=== PATIENT | female | born 1980 | race African-American/Black ===

== ENCOUNTER 2021-07-14 09:30 | Emergency (ER) | payer OTHER ==
[~2021-07-14] VITALS: Ht 157.5 cm; Wt 63.5 kg
--- NOTE | ~2021-07-14 | EMS ---
[facility] [address] [place] [address] EMS Patient Care Report Name: PRUDENCE CALLES Room #: DEP NEELAM Olvera#: [id number] Admission: 07/14/21 Attend Phys: Discharge: 07/14/21 Date of : 82 Report #: [id number] THIS REPORT FOR: //name// Report Transmitted: 07/15/2021 10:20 EMS Care Summary [place], [place]/[facility] Incident [id number] @ 07/14/2021 08:55 Incident Location [address] [address] Patient PRUDENCE CALLES Female, 40 Years 1980 Patient Address [address] [address] Patient History None Reported, Patient Allergies Penicillin allergy, Patient Medications None Reported, Chief Complaint CHEST PAIN Disposition Transported No Lights/[place] Dispatch Reason Heart Problems/AICD Transported To [facility] Narrative M41 DISPATCHED TO . [facility] [address] [place] [address] EMS Patient Care Report Name: PRUDENCE CALLES Room #: DEP May#: [id number] Admission: 07/14/21 Attend Phys: Discharge: 07/14/21 Date of : 82 Report #: [id number] M41 AOS AND FOUND A FEMALE PT COMPLAINING OF L SIDED CHEST PAIN. PT STATES THE PAIN STARTED LAST NIGHT. PT STATES THAT THE PAIN HAS GOTTEN WORSE RATES PAIN 9/10 ON THE L SIDE OF HER CHEST. PT DENIES ANY OTHER SYMPTOMS OR COMPLAINTS. PTS MED HX, ALLERGIES, AND MEDS OBTAINED. PT WAS ABLE TO TAKE A FEW STEPS TO THE STRETCHER AND WAS MOVED INTO THE AMBULANCE. VITALS OBTAINED. BGA OBTAINED. 4 AND 12 LEAD OBTAINED WHICH WERE UNREMARKABLE. 324ASA GIVEN PO. 0.4MG NTG GIVEN SL. PT STATES THAT HER CP DECREASES TO A 6/10. M[address] [facility]. EN ROUTE PT REMAINED STABLE. REPORT GIVEN TO AIXA ECHAVARRIA. SIGNATURES OBTAINED. TRANSFER OF CARE TOOK PLACE. M41 IN SERVICE. 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 Vitals @09:13P: 70, @09:19P: 82,BP: 95/54,CO: 0,SpO2: 99, @09:13P: 74,R: 18,BP: 116/76,Pain: 8/10,GCS: 15,Glucose: 109,SpO2: 98,Revised Trauma: 12, @09:19P: 85,R: 18,BP: 106/70,Pain: 6/10,GCS: 15,SpO2: 99,Revised Trauma: 12, Assessments @:22MENTAL:Place Oriented,Event Oriented,Person Oriented,Time Oriented,SKIN:HEENT:Head/Face: No Abnormalities,Neck/Airway: No Abnormalities,LUNG SOUNDS:General: No Abnormalities,ABDOMEN:General: No Abnormalities,PELVIS//GI:No Abnormalities,EXTREMITIES:Capillary Refill: Right Upper: < 2 Sec,Left Arm: No Abnormalities,Right Arm: No Abnormalities,Left Leg: No Abnormalities,Right Leg: No Abnormalities,PULSE:Radial: 2+ Normal,NEURO:No Abnormalities, Impression Chest Pain / Discomfort Procedures @09:06 ALS Assessment Response: UnchangedSucceeded @09:12 3-Lead ECG Response: UnchangedSucceeded @09:11 IV Therapy - Saline Lock 8cc (18 ga) Site: Antecubital-Left Response: UnchangedSucceeded [facility] [address] [address] EMS Patient Care Report Name: PRUDENCE CALLES MARCELINO Room #: [facility] May#: [id number] Admission: 07/14/21 Attend Phys: Discharge: 07/14/21 Date of : 82 Report #: [id number] @09:14 Aspirin - 324 Milligrams (mg) - Oral Response: Improved @09:15 Nitrostat - 0.4 Milligrams (mg) - Sublingual Response: Improved @09:13 12-Lead ECG Response: UnchangedSucceeded Timeline 08:51,Call Received 08:51,Dispatch Notified 08:55,Dispatched 08:58,En Route 09:05,On Scene 09:06,At Patient 09:06,ALS Assessment,Response: UnchangedSucceeded, 09:11,IV Therapy - Saline Lock 8cc 18 ga Site: Antecubital-Left,Response: UnchangedSucceeded, 09:12,3-Lead ECG,Response: UnchangedSucceeded, 09:13,BP: 116/76 M,PULSE: 74,RR: 18 R,SPO2: 98 Ox,ETCO2: ,B,PAIN: 8,GCS: 15, 09:13,12-Lead ECG,Response: UnchangedSucceeded, 09:13,BP: / M,PULSE: 70,RR: R,SPO2: Ox,ETCO2: ,BG: ,PAIN: ,GCS: , 09:14,Aspirin - 324 Milligrams (mg) - Oral,Response: Improved 09:15,Nitrostat - 0.4 Milligrams (mg) - Sublingual,Response: Improved 09:16,Depart Scene 09:19,BP: 95/54 M,PULSE: 82,RR: R,SPO2: 99 Ox,ETCO2: ,BG: ,PAIN: ,GCS: , 09:19,BP: 106/70 M,PULSE: 85,RR: 18 R,SPO2: 99 Ox,ETCO2: ,BG: ,PAIN: 6,GCS: 15, 09:25,At Destination 09:41,Call Closed Disclaimer v1.1 Copyright 2021 [employer] This EMS Care Summary contains data elements from the applicable legal record (which may be displayed differently). It is designed to provide pertinent information for the following purposes: continuity of care, clinical quality, and state data reporting. The complete legal record is available to ED staff and administrators of the receiving hospital in [employer] Patient Tracker. All data is provided "as is."
[2021-07-14 10:27] LABS: ABSOLUTE NEUTROPHILS 2.9 thou/uL (1.4-8.2); BASOPHILS 0.7 % (0.0-2.0); EOSINOPHILS 1.9 % (0.0-3.0); HEMATOCRIT 29.2 % (37.0-47.0); HEMOGLOBIN 9.3 gm/dL (12.0-15.0); LYMPHOCYTES 27.7 % (24.0-44.0); MCH 23.3 pg (26.0-34.0); MCHC 31.8 g/dL (28.0-37.0); MCV 73.3 fL (80.0-100.0); MONOCYTES 12.8 % (1.0-8.0); PLATELET COUNT 201 thou/uL (150-400); POLYS 56.9 % (36.0-66.0); RBC 3.99 mil/uL (4.20-5.00); RDW 18.9 % (10.5-14.5); WBC 5.1 thou/uL (4.0-11.0)
[2021-07-14 10:48] LABS: CALCIUM 8.7 mg/dL (8.5-10.1); CREATININE 0.6 mg/dL (0.6-1.0); POTASSIUM 3.5 mmol/L (3.5-5.1)
[2021-07-14] MEDS ORDERED: XANAX 0.5 MG0.5 M1 PO (11:57)
[2021-07-14] MEDS ORDERED: NAPROSYN500 MG PO (11:57)
[2021-07-14 12:27] VITALS: BP 122/46
[2021-07-14 13:07] LABS: ANISOCYTOSIS 2+; MICROCYTES 2+; PLATELET ESTIMATE NORMAL; SCHISTOCYTES FEW
--- NOTE | 2021-07-15 07:38 | EKG ---
[place] [address] [facility] [place] [address] ELECTROCARDIOGRAM REPORT Name: PRUDENCE CALLES Room #[facility] [id number] Admission: 07/14/21 Attend Phys: Discharge: 07/14/21 Date of : 82 Report #: [id number] [facility] ED Test Date: 2021-07-14 Test Time: 09:34:28 Pat Name: PRUDENCE CALLES Department: Room: Gender: F Safety Inspector: ABHIJIT : 1980 Requested By: Jose David Stapleton Order Number: [id number] MD: Phuc Law Measurements Intervals [place] Rate: 75 P: 72 MD: 130 QRS: 74 QRSD: 81 T: 55 QT: 407 QTc: 455 Interpretive Statements Sinus rhythm Borderline T abnormalities, anterior leads Compared to ECG 09/29/2009 18:59:17 T-wave abnormality now present Electronically Signed On 07-15-2021 7:38:14 RN SURGICAL by Phuc Law [email or web address] <ELECTRONICALLY SIGNED> By: Phuc Law MD, [facility] 07/15/21 0738 0934 3 Phuc Law MD, FACC /EPI
== END 2021-07-14 12:38 | disposition home or self-care (01) ==
LOC: ER 09:30
PROVIDERS: Emergency Medicine
DX: R07.89 Other chest pain (principal); R20.2 Paresthesia of skin